=== PATIENT | female | born 1960 | race Caucasian/White ===

== ENCOUNTER 2018-06-07 07:53 | Inpatient (IN) ==
--- NOTE | 2018-05-29 14:26 | History & Physical Report ---
Date of Service May 29, 2018 Date of Surgery: 06-07-18 Assessment & Plan (1) Degenerative arthritis of knee, bilateral: Risks and benefits of procedure discussed in detail today, patient has failed conservative measures and would like to proceed with bilateral total knee replacements on 06-07-18 @ [facility] as scheduled. will obtain medical clearance prior to surgery as well as obtain PATs at [facility]. Will place on Xarelto x 1 month post op, f/u 2 weeks post op for routine post-operative care and xray, sooner if having any problems. will make arrangements for HHPT at the time of discharge. has tried and failed cortisone injections, viscosupplementation, as well as Coolief on her left knee. History of Present Illness Chief Complaint: bilateral knee pain Primary Care Provider: Ray Bernal Ms Nguyen is a 58 year old female who is here for a follow up of bilateral knee pain, presents for pre-op evaluation prior to bilateral total knee replacements. She complains of pain equally on both sides. She states that the symptoms have been chronic non-traumatic. Currently the patient states that the symptoms are mild-moderate. The pain is described as aching and throbbing. She rates her current pain as 4/10 in both knees, and worst as an 8/10 bilateral knees. The symptoms are aggravated by daily activities and walking, standing and using stairs and the pain sometimes wakes her at night. The patient has undergone previous visco injections as well as cortisone injections with little relief, she has also undergone Coolief on her left knee as part of a clinical trials with little relief. At this point in time, patient has tried and failed conservative measures and would like to proceed with bilateral total knee replacements. Allergies Allergy/AdvReac Type Severity Reaction Status Date / Time No Known Allergies Allergy Verified 05/23/18 08:40 Home Medications Home Medications Medication Instructions Recorded Confirmed Type amlodipine [Norvasc] 10 mg PO QAM 05/23/18 05/23/18 History calcium carbonate [Tums] 200 mg PO BID PRN 05/23/18 05/23/18 History meloxicam 15 mg PO QAM 05/23/18 05/23/18 History tramadol-acetaminophen 2 tab PO Q4H PRN 05/23/18 05/23/18 History Past Med/Surg History Medical History GERD (gastroesophageal reflux disease) TUMS PRN Hypertension Kidney stones Obesity Osteoarthritis Surgical History History of appendectomy History of bilateral tubal ligation History of nephrectomy R/T 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 [facility], FOLLOWS [id number]. History of tonsillectomy Social History Current Living Situation: Spouse Other Information That Helps Us Care for You: No Feels Safe at Home: Yes Safety Concerns: Feels Safe At This Time Smoking Status: Former smoker Tobacco Type: cigarettes Do You Dip or Chew Tobacco: No Smoking End Date: 2016 Hx Alcohol Use: No Hx Substance Use: No Beliefs That Will Affect Care: None Preferred Language: Beninese Communication Ability: Effective Sports Medicine Coordinator Required: No Review of Systems All systems reviewed & are unremarkable except as noted in HPI & below Constitutional: no fever, no chills and no sweats Respiratory: no cough and no dyspnea Cardiovascular: no chest pain, no dyspnea and no orthopnea Gastrointestinal: no abdominal pain, no nausea and no vomiting Musculoskeletal: as per Subjective / HPI Integumentary: no rash and no lesions Endocrine: no fatigue Physical Exam 2 Vital Signs (Past 24 Hours): Ht: 5ft 2in Wt: 81.9kg BP: 128/84 Pulse: 74 Constitutional: WD/WN, vitals as above no acute distress Respiratory: normal respiratory effort, lungs clear to auscultation no respiratory distress and does not use accessory muscles Cardiovascular: RRR, no murmur, no edema Gastrointestinal (Abdomen): normal bowel sounds, soft, nontender, no hepatosplenomegaly Musculoskeletal: Bilateral knee Physical exam Overall patient has varus alignment bilaterally, there is no atrophy, erythema or warmth, no ecchymosis noted, she does have +1 suprapatellar effusion in both of her knees, she has diffuse tenderness to both knees, but greatest over bilateral medial compartments. negative patellar apprehension, she does have crepitation noted to both knees with active and passive range of motion, bilateral knees stable to valgus and varus stress, tonya negative, posterior drawer negative. Range of motion right knee 0/5/115, left knee 0/5/115. her lower extremities are neurovascularly intact, calf soft and non tender, DP pulse +2 bilaterally. Results & Data Diagnostic Findings Bilateral Knee 4 view X-rays dated 05/19/18: AP, flexion lateral and sunrise views confirm bilateral knee advanced degenerative changes to bilateral knees, greatest medial compartments and patellofemoral joints with complete loss of joint space medial compartments, showing joint space narrowing, osteophyte formation and subchondral sclerosis. no acute bony pathology noted, overall varus alignment, no loose bodies.
--- NOTE | 2018-05-29 14:41 | Anesthesiology Consultation ---
Date of Service May 29, 2018 Assessment & Plan (1) Encounter for pre-operative examination: Plan: PCP clearance (Gabe) 05/29: "The patient has no medical contraindications to proceed with bilateral total knee arthroplasty. She is at low medical risk." *Possible difficult intubation based on exam* Chart Review Chart Review: Acceptable Risk for Surgery and Patient seen in Pre Admission Testing Teaching & Discussion Instructed NPO after midnight before surgery, except medications with 15 cc of water. Medication instructions provided according to the PAT guidelines. History Surgery Operation Date: 06/07/18 11:40 Proposed Procedures p Bilateral Total Knee Arthroplasty - Danilo De Leon DO Height/Weight Height: 5 ft 2 in Weight: 81.9 kg Allergies Allergy/AdvReac Type Severity Reaction Status Date / Time No Known Allergies Allergy Verified 05/23/18 08:40 Medications Home Medications Medication Instructions Recorded Confirmed Last Taken amlodipine [Norvasc] 10 mg PO QAM 05/23/18 05/23/18 Unknown calcium carbonate [Tums] 200 mg PO BID PRN 05/23/18 05/23/18 Unknown meloxicam 15 mg PO QAM 05/23/18 05/23/18 Unknown tramadol-acetaminophen 2 tab PO Q4H PRN 05/23/18 05/23/18 Unknown Past Medical History Medical History GERD (gastroesophageal reflux disease) TUMS PRN Hypertension Kidney stones Obesity Osteoarthritis Past Family History Family History Unknown Hypertension Past Surgical History Surgical History History of appendectomy History of bilateral tubal ligation History of nephrectomy R/T 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 [facility], FOLLOWS [id number]. History of tonsillectomy Past Anesthesia History No Hx of Anesthesia Complications and No Family Hx of Anesthesia Complications History of PONV No Motion Sickness Screening History of Motion Sickness: No Social History Smoking Status: Former smoker tobacco type: cigarettes Do You Dip or Chew Tobacco: No Smoking End Date: 2016 Hx Alcohol Use: No Hx Substance Use: No substance use type: does not use Exercise / Class Metabolic Activity II 4-5 Yardwork/Stairs/Walk up hill (denies CP or SOB with stairs) Review of Systems Pt denies any recent chest pain, shortness of breath, palpitations, cough, fever or URI. Physical Exam Vital Signs BP: 139/84 (pt states this is elevated for her) P: 77bpm SPO2: 99% RA T: 97.8 F R: 16 ENMT Mouth: + small oral opening; no dental restorations, no chipped teeth and no loose teeth Thyromental Distance: < 3.5 Finger Breadths (3) Mallampati Class: IV Neck normal visual inspection; neck extension not limited Respiratory normal respiratory effort Auscultation: lungs clear to auscultation bilaterally Cardiovascular Rate/Rhythm: regular rate and regular rhythm Heart Sounds: no murmur Vessels: no carotid bruit Extremities: no edema Testing Electrocardiogram Date: 05/29/18 Findings: + NSR @ (70) Chest X-Ray Date: 05/29/18 Findings: + NAD Laboratory Results 05/29/18 15:00 05/29/18 15:00 Blood Type A Positive 05/29/18 15:00 Antibody Screen NEGATIVE 05/29/18 15:00 PT 10.4 Seconds (9.0-12.0) 05/29/18 15:00 INR 1.0 (0.9-1.1) 05/29/18 15:00 APTT 25.4 Seconds (21.0-31.0) 05/29/18 15:00 Hemoglobin A1c 6.2 % (4.5-5.6) H 05/29/18 15:00 Urine Color Yellow 05/29/18 Unknown Urine Appearance Clear (Clear) 05/29/18 Unknown Urine pH 5.5 (4.5-7.5) 05/29/18 Unknown Ur Specific [place] 1.023 (1.000-1.030) 05/29/18 Unknown Urine Protein Negative (Negative) 05/29/18 Unknown Urine Glucose (UA) Negative (Negative) 05/29/18 Unknown Urine Ketones Negative (Negative) 05/29/18 Unknown Urine Nitrite Negative (Negative) 05/29/18 Unknown Ur Leukocyte Esterase 2+ (Negative) H 05/29/18 Unknown Urine WBC (Auto) 10-30 /hpf (0-5) H 05/29/18 Unknown Urine RBC (Auto) 0-4 /hpf (0-4) 05/29/18 Unknown U Hyaline Cast (Auto) 1-5 /lpf (0-5) 05/29/18 Unknown U Epithel Cells (Auto) >30 /lpf (0-5) H 05/29/18 Unknown Urine Bacteria (Auto) Negative (Negative) 05/29/18 Unknown
--- NOTE | 2018-05-29 14:50 | PAT Medication Instructions ---
Medication Instructions Date of Service May 29, 2018 Home Medications amlodipine [Norvasc] 10 mg PO QAM calcium carbonate [Tums] 200 mg PO BID PRN meloxicam 15 mg PO QAM tramadol-acetaminophen 2 tab PO Q4H PRN ASK your surgeon for instructions meloxicam 15 mg PO QAM DO NOT take the morning of surgery calcium carbonate [Tums] 200 mg PO BID PRN Take morning of surgery With a small sip of water, OTHERWISE NOTHING TO EAT OR DRINK AFTER MIDNIGHT: amlodipine [Norvasc] 10 mg PO QAM tramadol-acetaminophen 2 tab PO Q4H PRN (if needed, may be taken up to four hours before surgery) Take evening before surgery calcium carbonate [Tums] 200 mg PO BID PRN (if needed) tramadol-acetaminophen 2 tab PO Q4H PRN (if needed) Other Notes If you have any questions please call us at [phone] or [phone] or [phone] or [phone]
--- NOTE | 2018-05-29 15:29 | XRay Report ---
XR chest Pre-admission PA/Lat CLINICAL HISTORY: Preoperative chest COMPARISON STUDY: No previous studies for comparison. FINDINGS: The cardiac and mediastinal contours are normal. There is no evidence of focal pulmonary co nsolidation. There is no evidence of failure. No pleural effusions are visualized.[ IMPRESSION: No active disease in the chest. Electronically signed by: Stanislav Gonzalez M.D. 05/29/2018 3:28 PM
[2018-05-29 15:32] LABS: Basophils # (auto) 0.04 K/uL (0-0.2); Basophils % (auto) 0.5 %; Eosinophils # (auto) 0.29 K/uL (0-0.5); Eosinophils % (auto) 3.6 %; Hematocrit (blood only) 40.2 % (37-47); Hemoglobin 13.2 g/dL (12.0-16.0); Immature Granulocytes # (auto) 0.02 K/uL (0.00-0.02); Immature Granulocytes % (auto) 0.2 %; Lymphocytes # (auto) 2.23 K/uL (1.2-3.4); Lymphocytes % (auto) 27.5 %; Mean Corpuscular Hgb Conc 32.8 g/dL (32-36); Mean Platelet Volume 10.3 fL (7.4-10.4); Monocytes # (auto) 0.54 K/uL (0.11-0.59); Monocytes % (auto) 6.7 %; Neutrophils # (auto) 4.98 K/uL (1.4-6.5); Neutrophils % (auto) 61.5 %; Platelet Count 259 K/uL (130-400); RDW Coefficient of Variation 13.9 % (11.5-14.5); RDW Standard Deviation 47.1 fL (36.4-46.3); Red Blood Count 4.37 M/uL (4.2-5.4)
[2018-05-29 15:39] LABS: Appearance Urine Clear (Clear); Bacteria Urine Automated Negative (Negative); Bilirubin Urine Negative (Negative); Color Urine Yellow; Epithelial Cell Urine Auto >30 /lpf (0-5); Glucose Urine UA Negative (Negative); Ketones Urine Negative (Negative); Leukocyte Esterase Urine 2+ (Negative); Nitrite Urine Negative (Negative); Protein Urine Negative (Negative); Specific Gravity Urine 1.023 (1.000-1.030); Urobilinogen Urine Negative (Negative); pH Urine 5.5 (4.5-7.5)
[2018-05-29 15:45] LABS: Partial Thromboplastin Time 25.4 Seconds (21.0-31.0); Prothrombin Time 10.4 Seconds (9.0-12.0)
[2018-05-29 16:07] LABS: Albumin Level 3.9 gm/dl (3.4-5.0); BUN Creatinine Ratio 18.7 (10-20); Calcium 9.7 mg/dl (8.5-10.1); Creatinine Clr Calc Pharmacy 50.3 ml/min; Est GFR (African American) 58.1; Est GFR (Non-African American) 50.1; Potassium 3.6 mmol/L (3.5-5.1)
[2018-05-30 06:20] LABS: Estimated Average Glucose 131 mg/dl
[~2018-06-07 07:53] MED LIST: ACETAMINOPHEN 500 MG TAB PO SCH; BUPIVACAINE 0.5 % 5 MG/1 ML PF 10ML VIAL ONE; CEFAZOLIN 2000MG 2,000 MG/15 ML SYR IV SCH; CeleBREX 200 MG CAP PO SCH; FAMOTIDINE 20 MG TAB PO SCH; GABAPENTIN 300 MG x 2 PO SCH; LR 15ML/HR IV SCH; LR 500ML BOLUS IV SCH; METOCLOPRAMIDE HCL 10 MG TABLET PO SCH; MIDAZOLAM HCL 1 MG/ML 2ML VIAL ONE; ROPIVACAINE 0.5% 5 MG/ML 30 ML VIAL ONE; ROPIVACAINE 0.5% HCL/PF 150 MG, BUPIVACAINE 0.5% MPF 30 ML, EPINEPHrine 30MG/30ML (OR U... INFIL SCH; TRANEXAMIC ACID 1,000 MG **IV Intra-op IV SCH; TRANEXAMIC ACID 1,000 MG **IV Pre-op IV SCH; dexAMETHasone 4 MG TAB PO SCH; fentaNYL citrate 100 MCG/2 ML VIAL ONE
[2018-06-07] MEDS: LR 500ML BOLUS, THEN 15ML/HR IV SCH ×4 (08:35→21:53)
[2018-06-07] MEDS ORDERED: ORTHO JOINT ANESTHETIC ONE (09:15)
[2018-06-07] MEDS ORDERED: POVIDONE-IODINE OP SOLN 30 ML BTL ONE (09:15)
[2018-06-07] MEDS ORDERED: BACITRACIN INJ 50,000 UNIT VIAL ONE (09:15)
--- NOTE | 2018-06-07 10:25 | History & Physical Bridge Note ---
Date of Service June 07, 2018 History & Physical Bridge Note I have examined the patient, reviewed the History & Physical and in the interval since the performance of the History & Physical I have noted the following changes of clinical significance: no changes noted
[2018-06-07] MEDS ORDERED: ePHEDrine sulfate 50 MG/ML AMP IV PRN (10:43)
[2018-06-07] MEDS ORDERED: ONDANSETRON INJ 2 MG/ML 2 ML VIAL IV PRN (10:43)
[2018-06-07] MEDS ORDERED: ATROPINE SULFATE 0.1 MG/ML 10ML SYR IV PRN (10:43)
[2018-06-07] MEDS ORDERED: fentaNYL citrate 100 MCG/2 ML VIAL IV PRN (10:43)
[2018-06-07] MEDS ORDERED: MIDAZOLAM HCL 1 MG/ML 2ML VIAL ONE ×2 (10:51→11:53)
[2018-06-07] MEDS ORDERED: PROPOFOL IV EMULSION 10 MG/ML 20 ML VIAL IV ONE (10:52)
--- NOTE | 2018-06-07 12:22 | Operative Report ---
Post Operative Report Pre & Post Diagnosis Severe end-stage tricompartmental degenerative joint disease bilateral knees Operation Date: 06/07/18 10:20 <No data on this case meets the specified criteria> Procedure Bilateral total knee arthroplasty utilizing [employer] journey to non-bloc total knee arthroplasty right size 3 femur 3 tibia 9 polys 29 oval patella left size 3 femur 3 tibia 10 polyethylene 29 oval patella Operation Date: 06/07/18 10:20 <No data on this case meets the specified criteria> Surgeon Danilo De Leon DO [facility] FIGUEREDO Estimated Blood Loss 5 Findings Consistent with Post-Op Diagnosis Patient presents with severe end-stage tricompartmental degenerative joint disease of bilateral knees no response to conservative manner is varus alignment subchondral sclerosis marginal osteophytes [id number] eburnation with subchondral cystic changes Specimens Bone and cartilage Drains Medium bore Hemovac Complications none Disposition Accompanied Patient To Recovery: No Disposition: Recovery Room Indications Patient presents with severe end-stage tricompartmental degenerative rest activity modification corticosteroid injections Visco supplementation the above finding times surgery and preoperatively were noted. Description of Procedure After proper prepping and draping of the bilateral lower extremities, an anterior midline incision was made over the region of the extensor extensor mechanism of the left knee. After meticulous hemostasis was obtained and maintained in subcutaneous tissues a medial parapatellar incision was made The patella was subluxed lateralward the medial lateral gutter were cleaned from any hypertrophic synovitis and scar tissue of the distal femoral block was placed and the distal femoral osteotomy cut was made subsequently the chamfers anterior and posterior osteotomy cuts were made utilizing the 4-in-1 block the tibia was subsequently subluxed anteriorward medial and ateral meniscal remnants were excised in their entirety remnants of the anterior and posterior cruciate ligaments were excised in their entirety excellent exposure of the proximal tibia was obtained the tibial osteotomy guide was placed on the proximal tibial osteotomy cut was made once again the knee was irrigated with copious amounts of sterile saline solution the patella was subsequently everted lateralward thickened scar tissue around the patella was removed the patella was subsequently cut utilizing a freehand technique and was drilled prepared for final preparation and placement of patella socially flexion-extension gaps were checked and the equal and symmetric trials were placed to the appropriate femoral and tibial trials with poly-spacer being placed for equal flexion and extension gaps and full range of motion including extension to 0 and flexion to 140� the trial components after having been taken to recovery range of motion was subsequently removed meticulous hemostasis was obtained and maintained subsequently a knee block injection of joint cocktail including ropivacaine 0.5 % 150 mg. Bupivacaine 0.5% epinephrine 1-200,030 mL's toradol 30 mg dexamethasone 4 mg ketamine 10 mg clonidine 100 micrograms normal saline solution 30 mg was infiltrated into the soft tissues of the posterior knee medial lateral gutters and periosteal synovium special attention was paid to protect neurovascular structures at all times subsequently trial components having been removed the knee was irrigated with sterile saline solution. debris was removed the proximal tibia was subsequently prepared and was made ready for the placement of the tibial component tibial component was also cemented and tamped into position the femoral component was subsequently placed and cemented in the position the patellar component was subsequently cemented in position because hemostasis once again obtained and maintained wound having been thoroughly irrigated with debridement and debridement lavage was performed as well as a medial parapatellar incision closed with #1 Vicryl in interrupted fashion subcutaneous was closed with #2 Vicryl skin was closed with skin clips Next, an anterior midline incision was made over the region of the extensor extensor mechanism of the right knee. After meticulous hemostasis was obtained and maintained in subcutaneous tissues a medial parapatellar incision was made The patella was subluxed lateralward the medial lateral gutter were cleaned from any hypertrophic synovitis and scar tissue of the distal femoral block was placed and the distal femoral osteotomy cut was made subsequently the chamfers anterior and posterior osteotomy cuts were made utilizing the 4-in-1 block the tibia was subsequently subluxed anteriorward medial and ateral meniscal remnants were excised in their entirety remnants of the anterior and posterior cruciate ligaments were excised in their entirety excellent exposure of the proximal tibia was obtained the tibial osteotomy guide was placed on the proximal tibial osteotomy cut was made once again the knee was irrigated with copious amounts of sterile saline solution the patella was subsequently everted lateralward thickened scar tissue around the patella was removed the patella was subsequently cut utilizing a freehand technique and was drilled prepared for final preparation and placement of patella socially flexion-extension gaps were checked and the equal and symmetric trials were placed to the appropriate femoral and tibial trials with poly-spacer being placed for equal flexion and extension gaps and full range of motion including extension to 0 and flexion to 140� the trial components after having been taken to recovery range of motion was subsequently removed meticulous hemostasis was obtained and maintained subsequently a knee block injection of joint cocktail including ropivacaine 0.5 % 150 mg. Bupivacaine 0.5% epinephrine 1-200,030 mL's toradol 30 mg dexamethasone 4 mg ketamine 10 mg clonidine 100 micrograms normal saline solution 30 mg was infiltrated into the soft tissues of the posterior knee medial lateral gutters and periosteal synovium special attention was paid to protect neurovascular structures at all times subsequently trial components having been removed the knee was irrigated with sterile saline solution. debris was removed the proximal tibia was subsequently prepared and was made ready for the placement of the tibial component tibial component was also cemented and tamped into position the femoral component was subsequently placed and cemented in the position the patellar component was subsequently cemented in position because hemostasis once again obtained and maintained wound having been thoroughly irrigated with debridement and debridement lavage was performed as well as a medial parapatellar incision closed with #1 Vicryl in interrupted fashion subcutaneous was closed with #2 Vicryl skin was closed with skin clips.. PA-C was necessary for prepping and drapping as well as wound closure of deep fascia Sub cutaneous tissue and skin and was necessary for the case. A sterile compressive dressings were placed, patient was taken to recovery in stable condition of report dictated by Moises I attest to the content of the Intraoperative Record and any orders documented therein. Any exceptions are noted below. I attest to the content of the Intraoperative Record and any orders documented therein. Any exceptions are noted below.
--- NOTE | 2018-06-07 14:14 | XRay Report ---
XR knee LT 2V routine CLINICAL HISTORY: 58 years-old Female presenting with Surgical Post Op. TECHNIQUE: Frontal and crosstable lateral views of the left knee were obtained. COMPARISON: 05/19/2018. FINDINGS: There has been interval total left knee arthroplasty with patellar resurfacing. Expected intra-articu lar and soft tissue emphysema. A surgical drain is in place. Underlying osteopenia may be present. No malalignment. No periprosthetic fracture. IMPRESSION: Expected postsurgical appearance status post total left knee arthroplasty with patellar resurfacing. Electronically signed by: Chago Parker M.D. 06/07/2018 2:13 PM
--- NOTE | 2018-06-07 14:17 | XRay Report ---
TWO VIEWS RIGHT KNEE CLINICAL HISTORY: Postoperative examination. FINDINGS: AP and crosstable lateral portable views of the right knee are obtained. A right knee arthr oplasty is in near anatomic alignment. There has been undersurface remodeling of the patella. There i s cortical disruption identified involving the dorsal aspect of the distal femoral metaphysis. There are expected postoperative changes around the knee including a surgical drain, soft tissue edema, and subcutaneous gas. IMPRESSION: 1. Expected postoperative changes status post right knee arthroplasty. 2. There is cortical disruption identified along the dorsal cortex of the distal femoral metaphysis. This may represent postoperative change. A nondistracted fracture is not excluded. Electronically signed by: Rich Garcia M.D. 06/07/2018 2:16 PM
--- NOTE | 2018-06-07 14:33 | Anesthesiology Progress Note ---
Date of Service June 07, 2018 Anesthesia Post Procedure Vital Signs Vital Signs: Temp Pulse Pulse Resp BP Pulse Ox 06/07/18 14:05 80 16 122/64 100 06/07/18 13:55 37.3 C 74 14 121/64 100 06/07/18 13:45 72 15 119/64 100 06/07/18 13:35 72 19 104/72 100 06/07/18 13:25 77 13 125/68 100 06/07/18 13:15 88 17 142/77 H 100 06/07/18 13:07 36.7 C 93 H 16 130/78 99 06/07/18 09:16 147/83 H 06/07/18 08:37 36.9 C 83 20 170/101 H 100 Pain Intensity Bilateral Knee: Pain Intensity: 0 Notes Mental Status: alert / awake / arousable Patient Amnestic to Procedure: Yes Nausea / Vomiting: adequately controlled Pain: adequately controlled Airway Patency, RR, SpO2: stable & adequate BP & HR: stable & adequate Hydration State: stable & adequate Neuraxial Anesthesia: was administered and sensory block is resolving Anesthetic Complications: no major complications apparent and Pt Satisfied with anesthetic care
[2018-06-07] MEDS ORDERED: MAGNESIUM HYDROXIDE SUSP 30 ML UDC PO PRN (14:37)
[2018-06-07] MEDS ORDERED: NALOXONE HCL 0.4 MG/1 ML VIAL/CARP IV PRN (14:37)
[2018-06-07] MEDS ORDERED: CALCIUM CARBONATE 500 MG CHEWABLE TAB PO PRN (14:37)
[2018-06-07] MEDS ORDERED: METOCLOPRAMIDE HCL INJ 5 MG/ML 2 ML VIAL IV PRN (14:37)
[2018-06-07] MEDS ORDERED: ALUMINUM/MAGNESIUM SUSP 30 ML UDC PO PRN (14:37)
[2018-06-07] MEDS ORDERED: BISACODYL 10 MG SUPP PR PRN (14:37)
[2018-06-07] MEDS ORDERED: HYDROmorphone INJ 1 MG/ML SYRINGE IV PRN (14:37)
[2018-06-07] MEDS: OXYCODONE HCL IR 5 MG TAB (IMMEDIATE RELEASE) PO PRN (17:36)
[2018-06-07] MEDS: FERROUS GLUCONATE 324 MG TAB PO SCH (17:37)
[2018-06-07] MEDS: ACETAMINOPHEN 500 MG TAB PO SCH (17:43)
[2018-06-07] MEDS: KETOROLAC TROMETHAMINE 15 MG/ML VIAL IV SCH ×2 (17:44→23:31)
[2018-06-07] MEDS: CEFAZOLIN 2000MG 2,000 MG/15 ML SYR IV SCH (19:26)
[2018-06-07] MEDS: SODIUM CHLORIDE 0.9% 1000ML 1,000 ML IV SCH (20:53)
[2018-06-07] MEDS: ONDANSETRON INJ 2 MG/ML 2 ML VIAL IV PRN (20:56)
[2018-06-07] MEDS: DOCUSATE SODIUM 100 MG CAP PO SCH (21:59)
[2018-06-07] MEDS: SENNA 8.6 MG TAB PO SCH (21:59)
[2018-06-08] MEDS: CEFAZOLIN 2000MG 2,000 MG/15 ML SYR IV SCH (03:08)
[2018-06-08] MEDS: ONDANSETRON INJ 2 MG/ML 2 ML VIAL IV PRN (03:09)
[2018-06-08] MEDS: KETOROLAC TROMETHAMINE 15 MG/ML VIAL IV SCH ×2 (05:30→11:58)
[2018-06-08] MEDS: SODIUM CHLORIDE 0.9% 1000ML 1,000 ML IV SCH (05:30)
[2018-06-08] MEDS: ACETAMINOPHEN 500 MG TAB PO SCH ×3 (05:30→20:46)
--- NOTE | 2018-06-08 07:59 | Orthopedic Progress Note ---
Date of Service June 08, 2018 Assessment & Plan (1) Status post total bilateral knee replacement: Begin PT and OT protocols today. Weightbearing as tolerated. DVT prophylaxis with SCDs, GUZMAN hose, and enoxaparin. Pain management with oxycodone, hydromorphone, rivaroxaban DC planning-patient is planning on home health services upon discharge. Labs pending. Subjective Postop day 1 status post bilateral total knee arthroplasty. Patient is sitting up in bed this morning and is awake and alert. She has no complaints at this time. She states that she had numbness in her left foot which has now resolved. She also had some nausea yesterday evening which also has resolved with the use of antiemetics. Shortness of breath, chest pain, lightheadedness. Physical Exam 2 Vital Signs (Past 24 Hours): Last Vital Signs Temp 36.6 C 06/08/18 07:18 Pulse 77 06/08/18 07:18 Resp 18 06/08/18 07:18 BP 142/83 H 06/08/18 07:18 Pulse Ox 97 06/08/18 07:18 Physical Exam: Bilateral dressings are clean, dry, and intact. Calves are soft and nontender. Neurovascular intact. Toes are mobile. She is having minimal drainage out of her Hemovacs.
--- NOTE | 2018-06-08 08:15 | Anesthesiology Progress Note ---
Date of Service June 08, 2018 Anesthesia Post Procedure Vital Signs Vital Signs: Temp Pulse Pulse Pulse Resp BP Pulse Ox 06/08/18 07:18 36.6 C 77 18 142/83 H 97 06/08/18 03:00 36.6 C 76 16 124/75 96 06/07/18 23:05 36.7 C 80 18 128/77 97 06/07/18 19:24 36.7 C 87 16 119/69 97 06/07/18 17:44 36.6 C 93 H 18 115/74 100 06/07/18 16:24 36.5 C 83 16 153/85 H 100 06/07/18 15:19 36.5 C 80 16 156/78 H 100 06/07/18 15:02 36.5 C 81 16 148/80 H 100 06/07/18 14:05 80 16 122/64 100 06/07/18 13:55 37.3 C 74 14 121/64 100 06/07/18 13:45 72 15 119/64 100 06/07/18 13:35 72 19 104/72 100 06/07/18 13:25 77 13 125/68 100 06/07/18 13:15 88 17 142/77 H 100 06/07/18 13:07 36.7 C 93 H 16 130/78 99 06/07/18 09:16 147/83 H 06/07/18 08:37 36.9 C 83 20 170/101 H 100 Pain Intensity Bilateral Knee: Pain Intensity: 4 Notes Mental Status: alert / awake / arousable and participated in evaluation Patient Amnestic to Procedure: Yes Nausea / Vomiting: adequately controlled Pain: adequately controlled Airway Patency, RR, SpO2: stable & adequate BP & HR: stable & adequate Hydration State: stable & adequate Neuraxial Anesthesia: was administered and sensory block resolved Anesthetic Complications: no major complications apparent and Pt Satisfied with anesthetic care
[2018-06-08] MEDS: OXYCODONE HCL IR 5 MG TAB (IMMEDIATE RELEASE) PO PRN ×4 (08:49→23:22)
[2018-06-08] MEDS: FERROUS GLUCONATE 324 MG TAB PO SCH ×2 (08:50→18:07)
[2018-06-08] MEDS: DOCUSATE SODIUM 100 MG CAP PO SCH ×2 (08:51→20:45)
[2018-06-08] MEDS: MULTIVITAMIN TAB PO SCH (08:51)
[2018-06-08] MEDS: AMLODIPINE BESYLATE 5 MG TAB PO SCH (08:51)
[2018-06-08] MEDS: RIVAROXABAN 10 MG TABLET PO SCH (08:52)
[2018-06-08 09:27] LABS: BUN Creatinine Ratio 16.3 (10-20); Calcium 8.6 mg/dl (8.5-10.1); Creatinine Clr Calc Pharmacy 55.1 ml/min; Est GFR (African American) 65.3; Est GFR (Non-African American) 56.4; Potassium 3.7 mmol/L (3.5-5.1)
[2018-06-08 09:39] LABS: Hematocrit (blood only) 34.8 % (37-47); Hemoglobin 11.3 g/dL (12.0-16.0); Mean Corpuscular Hgb Conc 32.5 g/dL (32-36); Mean Corpuscular Volume 91.6 fL (80-100); Mean Platelet Volume 10.5 fL (7.4-10.4); Platelet Count 251 K/uL (130-400); RDW Coefficient of Variation 13.7 % (11.5-14.5); RDW Standard Deviation 45.3 fL (36.4-46.3); White Blood Count 18.58 K/uL (4.8-10.8)
[2018-06-08] MEDS: CeleBREX 200 MG CAP PO SCH (20:44)
[2018-06-08] MEDS: SENNA 8.6 MG TAB PO SCH (20:45)
[2018-06-09] MEDS: OXYCODONE HCL IR 5 MG TAB (IMMEDIATE RELEASE) PO PRN ×2 (05:32→09:37)
[2018-06-09] MEDS: ONDANSETRON INJ 2 MG/ML 2 ML VIAL IV PRN (05:32)
[2018-06-09] MEDS: ACETAMINOPHEN 500 MG TAB PO SCH (05:34)
--- NOTE | 2018-06-09 07:38 | Orthopedic Progress Note ---
Date of Service June 09, 2018 Assessment & Plan (1) Status post total bilateral knee replacement: POD #2 s/p bilateral TKAs pt/ot dvt proph with SCDs, GUZMAN pina, and X[place] Pain management with oxycodone, hydromorphone Xray was reviewed with dr jose, it appears to be a post operative change rather than a posterior cortex fracture. will repeat xrays in 2 weeks, at this time may WBAT with her walker DC planning-patient is planning on home health services upon discharge. recheck after PT today for possible d/c home with HHPT Subjective Postop day 2 status post bilateral total knee arthroplasty. Constitutional: no fever, no chills and no sweats Respiratory: no cough and no dyspnea Cardiovascular: no chest pain, no dyspnea and no orthopnea Gastrointestinal: no nausea and no vomiting Musculoskeletal: as per Subjective / HPI Physical Exam 2 Vital Signs (Past 24 Hours): Last Vital Signs Temp 36.9 C 06/08/18 23:36 Pulse 97 H 06/08/18 23:36 Resp 16 06/08/18 23:36 BP 160/96 H 06/08/18 23:36 Pulse Ox 99 06/08/18 23:36 Constitutional: WD/WN, vitals as above no acute distress Musculoskeletal: Bilateral lower legs: NVDI, calf SNT, negative shandra sign. DP palpable, able to wiggle toes/ankle movement without difficulty. KATIE dressings clean dry and intact. expected post-operative bruising noted. Results & Data Laboratory Results Laboratory Results WBC 18.58 K/uL (4.8-10.8) H 06/08/18 08:32 RBC 3.80 M/uL (4.2-5.4) L 06/08/18 08:32 Hgb 11.3 g/dL (12.0-16.0) L 06/08/18 08:32 Hct 34.8 % (37-47) L 06/08/18 08:32 MCV 91.6 fL (80-100) 06/08/18 08:32 MCH 29.7 pg (25-34) 06/08/18 08:32 MCHC 32.5 g/dL (32-36) 06/08/18 08:32 RDW Std Deviation 45.3 fL (36.4-46.3) 06/08/18 08:32 RDW Coeff of Merle 13.7 % (11.5-14.5) 06/08/18 08:32 Plt Count 251 K/uL (130-400) 06/08/18 08:32 MPV 10.5 fL (7.4-10.4) H 06/08/18 08:32 Immature Gran % (Auto) 0.2 % 05/29/18 15:00 Neut % (Auto) 61.5 % 05/29/18 15:00 Lymph % (Auto) 27.5 % 05/29/18 15:00 [place] % (Auto) 6.7 % 05/29/18 15:00 Eos % (Auto) 3.6 % 05/29/18 15:00 Baso % (Auto) 0.5 % 05/29/18 15:00 Immature Gran # (Auto) 0.02 K/uL (0.00-0.02) 05/29/18 15:00 Neut # (Auto) 4.98 K/uL (1.4-6.5) 05/29/18 15:00 Lymph # (Auto) 2.23 K/uL (1.2-3.4) 05/29/18 15:00 [place] # (Auto) 0.54 K/uL (0.11-0.59) 05/29/18 15:00 Eos # (Auto) 0.29 K/uL (0-0.5) 05/29/18 15:00 Baso # (Auto) 0.04 K/uL (0-0.2) 05/29/18 15:00 PT 10.4 Seconds (9.0-12.0) 05/29/18 15:00 INR 1.0 (0.9-1.1) 05/29/18 15:00 APTT 25.4 Seconds (21.0-31.0) 05/29/18 15:00 PTT Ratio 1.0 05/29/18 15:00 Sodium 142 mmol/L (136-145) 06/08/18 08:32 Potassium 3.7 mmol/L (3.5-5.1) 06/08/18 08:32 Chloride 108 mmol/L (98-107) H 06/08/18 08:32 Carbon Dioxide 26 mmol/L (21-32) 06/08/18 08:32 Anion Gap 8.0 (3-11) 06/08/18 08:32 BUN 17 mg/dl (7-18) 06/08/18 08:32 Creatinine 1.07 mg/dl (0.6-1.2) 06/08/18 08:32 Est Cr Clr Drug Dosing 55.1 ml/min 06/08/18 08:32 Est GFR ( Amer) 65.3 06/08/18 08:32 Est GFR (Non-Af Amer) 56.4 06/08/18 08:32 BUN/Creatinine Ratio 16.3 (10-20) 06/08/18 08:32 Glucose 141 mg/dl (70-99) H 06/08/18 08:32 Estimat Average Glucose 131 mg/dl 05/29/18 15:00 Hemoglobin A1c 6.2 % (4.5-5.6) H 05/29/18 15:00 Calcium 8.6 mg/dl (8.5-10.1) 06/08/18 08:32 Albumin 3.9 gm/dl (3.4-5.0) 05/29/18 15:00 Urine Color Yellow 05/29/18 Unknown Urine Appearance Clear (Clear) 05/29/18 Unknown Urine pH 5.5 (4.5-7.5) 05/29/18 Unknown Ur Specific [place] 1.023 (1.000-1.030) 05/29/18 Unknown Urine Protein Negative (Negative) 05/29/18 Unknown Urine Glucose (UA) Negative (Negative) 05/29/18 Unknown Urine Ketones Negative (Negative) 05/29/18 Unknown Urine Blood Negative (Negative) 05/29/18 Unknown Urine Nitrite Negative (Negative) 05/29/18 Unknown Urine Bilirubin Negative (Negative) 05/29/18 Unknown Urine Urobilinogen Negative (Negative) 05/29/18 Unknown Ur Leukocyte Esterase 2+ (Negative) H 05/29/18 Unknown Urine WBC (Auto) 10-30 /hpf (0-5) H 05/29/18 Unknown Urine RBC (Auto) 0-4 /hpf (0-4) 05/29/18 Unknown U Hyaline Cast (Auto) 1-5 /lpf (0-5) 05/29/18 Unknown U Epithel Cells (Auto) >30 /lpf (0-5) H 05/29/18 Unknown Urine Bacteria (Auto) Negative (Negative) 05/29/18 Unknown Hepatitis C Ab Screen Neg (Neg) 06/08/18 08:32 Blood Type A Positive 05/29/18 15:00 Antibody Screen NEGATIVE 05/29/18 15:00 Diagnostic Findings TWO VIEWS RIGHT KNEE CLINICAL HISTORY: Postoperative examination. FINDINGS: AP and crosstable lateral portable views of the right knee are obtained. A right knee arthroplasty is in near anatomic alignment. There has been undersurface remodeling of the patella. There is cortical disruption identified involving the dorsal aspect of the distal femoral metaphysis. There are expected postoperative changes around the knee including a surgical drain, soft tissue edema, and subcutaneous gas. IMPRESSION: 1. Expected postoperative changes status post right knee arthroplasty. 2. There is cortical disruption identified along the dorsal cortex of the distal femoral metaphysis. This may represent postoperative change. A nondistracted fracture is not excluded. This was reviewed with Dr Jose as well, it appears to be a postoperative change , the fragment is in line with the posterior cortex cut.
[2018-06-09] MEDS: FERROUS GLUCONATE 324 MG TAB PO SCH (08:24)
[2018-06-09] MEDS: CeleBREX 200 MG CAP PO SCH (08:25)
[2018-06-09] MEDS: AMLODIPINE BESYLATE 5 MG TAB PO SCH (08:25)
[2018-06-09] MEDS: DOCUSATE SODIUM 100 MG CAP PO SCH (08:25)
[2018-06-09] MEDS: RIVAROXABAN 10 MG TABLET PO SCH (08:25)
[2018-06-09] MEDS: MULTIVITAMIN TAB PO SCH (08:25)
--- NOTE | 2018-06-09 10:25 | Discharge Summary ---
Date of Service Date of Discharge: June 09, 2018 Date of Admission: 06/07/18 Admission HPI Per Admitting Provider Ms Nguyen is a 58 year old female who is here for a follow up of bilateral knee pain, presents for pre-op evaluation prior to bilateral total knee replacements. She complains of pain equally on both sides. She states that the symptoms have been chronic non-traumatic. Currently the patient states that the symptoms are mild-moderate. The pain is described as aching and throbbing. She rates her current pain as 4/10 in both knees, and worst as an 8/10 bilateral knees. The symptoms are aggravated by daily activities and walking, standing and using stairs and the pain sometimes wakes her at night. The patient has undergone previous visco injections as well as cortisone injections with little relief, she has also undergone Coolief on her left knee as part of a clinical trials with little relief. At this point in time, patient has tried and failed conservative measures and would like to proceed with bilateral total knee replacements. Principal Diagnosis bilateral knee osteoarthritis Discharge Exam Constitutional WD/WN, vitals as above no acute distress Musculoskeletal bilateral Knees: NVDI, calf SNT, negative shandra sign. DP palpable, able to wiggle toes/ankle movement without difficulty. bilateral KATIE dressings clean dry and intact. expected post-operative bruising noted. Discharge Data Allergies Allergy/AdvReac Type Severity Reaction Status Date / Time No Known Allergies Allergy Verified 06/07/18 08:24 Consultations 06/07/18 14:37 Consult Case Management - Discharge Planning Routine Procedures Performed Operation Date: 06/07/18 10:20 Actual Procedures p Bilateral Total Knee Arthroplasty - Danilo Jose, Ordered Studies 06/07/18 05:00 US - OR guided needle placemen Routine Hospital Course (1) Status post total bilateral knee replacement: POD #2 s/p bilateral TKAs pt/ot dvt proph with SCDs, GUZMAN pina, and Xarelto Pain management with oxycodone, hydromorphone Xray was reviewed with dr jose, it appears to be a post operative change rather than a posterior cortex fracture. will repeat xrays in 2 weeks, at this time may WBAT with her walker DC planning-patient is planning on home health services upon discharge. recheck after PT today for possible d/c home with HHPT Patient was a same day admission after undergoing successful bilateral TKAs. She tolerated the procedure well. Post-operatively, her activity was progressed and well tolerated. Please refer to daily progress notes and PT notes for complete details. After exam on 06/09/18, patient felt to be stable for discharge home with HHPT. her post op xray of her right knee showed question of post surgical changes vs fracture, these were reviewed and felt to be post surgical and not a fracture. Patient will f/u in the office in 2 weeks for further evaluation including x-rays and incision check, sooner if having any issues or concerns. Below are pertinent labs/studies during their hospital stay: Laboratory Results WBC 18.58 K/uL (4.8-10.8) H 06/08/18 08:32 RBC 3.80 M/uL (4.2-5.4) L 06/08/18 08:32 Hgb 11.3 g/dL (12.0-16.0) L 06/08/18 08:32 Hct 34.8 % (37-47) L 06/08/18 08:32 MCV 91.6 fL (80-100) 06/08/18 08:32 MCH 29.7 pg (25-34) 06/08/18 08:32 MCHC 32.5 g/dL (32-36) 06/08/18 08:32 RDW Std Deviation 45.3 fL (36.4-46.3) 06/08/18 08:32 RDW Coeff of Merle 13.7 % (11.5-14.5) 06/08/18 08:32 Plt Count 251 K/uL (130-400) 06/08/18 08:32 MPV 10.5 fL (7.4-10.4) H 06/08/18 08:32 Immature Gran % (Auto) 0.2 % 05/29/18 15:00 Neut % (Auto) 61.5 % 05/29/18 15:00 Lymph % (Auto) 27.5 % 05/29/18 15:00 [place] % (Auto) 6.7 % 05/29/18 15:00 Eos % (Auto) 3.6 % 05/29/18 15:00 Baso % (Auto) 0.5 % 05/29/18 15:00 Immature Gran # (Auto) 0.02 K/uL (0.00-0.02) 05/29/18 15:00 Neut # (Auto) 4.98 K/uL (1.4-6.5) 05/29/18 15:00 Lymph # (Auto) 2.23 K/uL (1.2-3.4) 05/29/18 15:00 [place] # (Auto) 0.54 K/uL (0.11-0.59) 05/29/18 15:00 Eos # (Auto) 0.29 K/uL (0-0.5) 05/29/18 15:00 Baso # (Auto) 0.04 K/uL (0-0.2) 05/29/18 15:00 PT 10.4 Seconds (9.0-12.0) 05/29/18 15:00 INR 1.0 (0.9-1.1) 05/29/18 15:00 APTT 25.4 Seconds (21.0-31.0) 05/29/18 15:00 PTT Ratio 1.0 05/29/18 15:00 Sodium 142 mmol/L (136-145) 06/08/18 08:32 Potassium 3.7 mmol/L (3.5-5.1) 06/08/18 08:32 Chloride 108 mmol/L (98-107) H 06/08/18 08:32 Carbon Dioxide 26 mmol/L (21-32) 06/08/18 08:32 Anion Gap 8.0 (3-11) 06/08/18 08:32 BUN 17 mg/dl (7-18) 06/08/18 08:32 Creatinine 1.07 mg/dl (0.6-1.2) 06/08/18 08:32 Est Cr Clr Drug Dosing 55.1 ml/min 06/08/18 08:32 Est GFR ( Amer) 65.3 06/08/18 08:32 Est GFR (Non-Af Amer) 56.4 06/08/18 08:32 BUN/Creatinine Ratio 16.3 (10-20) 06/08/18 08:32 Glucose 141 mg/dl (70-99) H 06/08/18 08:32 Estimat Average Glucose 131 mg/dl 05/29/18 15:00 Hemoglobin A1c 6.2 % (4.5-5.6) H 05/29/18 15:00 Calcium 8.6 mg/dl (8.5-10.1) 06/08/18 08:32 Albumin 3.9 gm/dl (3.4-5.0) 05/29/18 15:00 Urine Color Yellow 05/29/18 Unknown Urine Appearance Clear (Clear) 05/29/18 Unknown Urine pH 5.5 (4.5-7.5) 05/29/18 Unknown Ur Specific [place] 1.023 (1.000-1.030) 05/29/18 Unknown Urine Protein Negative (Negative) 05/29/18 Unknown Urine Glucose (UA) Negative (Negative) 05/29/18 Unknown Urine Ketones Negative (Negative) 05/29/18 Unknown Urine Blood Negative (Negative) 05/29/18 Unknown Urine Nitrite Negative (Negative) 05/29/18 Unknown Urine Bilirubin Negative (Negative) 05/29/18 Unknown Urine Urobilinogen Negative (Negative) 05/29/18 Unknown Ur Leukocyte Esterase 2+ (Negative) H 05/29/18 Unknown Urine WBC (Auto) 10-30 /hpf (0-5) H 05/29/18 Unknown Urine RBC (Auto) 0-4 /hpf (0-4) 05/29/18 Unknown U Hyaline Cast (Auto) 1-5 /lpf (0-5) 05/29/18 Unknown U Epithel Cells (Auto) >30 /lpf (0-5) H 05/29/18 Unknown Urine Bacteria (Auto) Negative (Negative) 05/29/18 Unknown Hepatitis C Ab Screen Neg (Neg) 06/08/18 08:32 Blood Type A Positive 05/29/18 15:00 Antibody Screen NEGATIVE 05/29/18 15:00 Total Time Total Time Spent Total Time Spent (In Minutes): 20 Total Time Includes: Examination of the Patient, Discharge Planning and Medication Reconciliation Discharge Plan Discharge Items Patient Disposition: Home - Home Health Services Reason For Visit: Bilateral Knee Osteoarthritis Discharge Diagnosis: bilateral total knee replacements Condition: Good Discharge Goals: Decrease discomfort, Improve function and Increase independence Activity: Per 'Additional Instructions' section Lifting: Wait until after follow-up appointment Weightbearing: Left weightbearing and Right weightbearing Weightbearing Comment: WBAT with walker bilateral legs Non-emergency contact: Primary Care Provider and Surgeon Call non-emergency contact if: you have any medication questions, your temperature is above 100.5, your wound has increased redness, your wound has increased drainage and your wound pain has increased Follow-up/Referrals: Ray Bernal [Primary Care Provider] - Diet: Regular Addtl Provider Instructions: ACTIVITY RECOMMENDATIONS: SELF CARE INSTRUCTIONS AFTER TOTAL KNEE REPLACEMENT A. You may need to continue a physical therapy program after discharge from the hospital. There are several options available to you. Your doctor will assist you in selecting the best one for you. 1. An out-patient facility 2 to 3 times a week for therapy or home therapy. 2. Continue working on all exercises taught to you in the hospital. Your goals should be to increase bending of your knee to 90 degrees and beyond and to fully straighten your knee. B. You may progress at your own pace from walking with a walker or crutches to a cane; then to no assistive devices. C. Make walking a part of your daily routine. Be up as much as comfortable with rest periods throughout the day. Rest with leg elevation is very important. Use the ice wrap frequently for the first 3-4 weeks. D. There are no restrictions on activities. You may ride in a car, shop, participate in data entry email processor and all social activities. E. Wear the long elastic stockings (GUZMAN hose) 20 hours a day for 2 weeks after surgery. They can be removed several times a day for laundering and for a bath. F. You may shower, no tub baths until cleared by your doctor. SPECIAL CARE INSTRUCTIONS: VERY IMPORTANT TO READ AND REVIEW A. There are a few signs you need to watch for after you are home. Call [facility] if you notice any of the followin. Increased severe knee pain. Some pain is expected especially when you exercise. 2. Increased swelling in your leg or knee; pain or swelling of the calf muscle in either lower leg. 3. Any fluid drainage from the incision. 4. Shortness of breath or chest pain. B. Please call [facility] at if you have any concerns or questions about your operation or recovery. The doctor or his nurse will return your call promptly. C. You must take antibiotics before dental work, bladder, bowel or other surgery. Your doctor will provide you with a permanent care to carry describing this precaution. IMPORTANT: * REMEMBER TO TAKE ASPIRIN, 81 MG, TWICE DAILY FOR 4 WEEKS UNLESS OTHERWISE DIRECTED. THIS IS YOUR BLOOD THINNER. * HIGH RISK PATIENTS MAY BE PRESCRIBED A STRONGER BLOOD THINNER. THIS WILL BE PROVIDED AT DISCHARGE. * CALL IF INCREASED PAIN, REDNESS, DRAINAGE OR FEVER GREATER THAT 101. * WEAR GUZMAN HOSE 20 HOURS PER DAY FOR 2 WEEKS. * KATIE Dressing- This is a large suction dressing covering your incision. This will help pull any excess drainage from the wound and allow your incision to heal properly. You may shower with this if you can keep the unit outside of the shower. If any bleeding or leakage is noted please call your doctor's office. This will remain on your incision for 7 days and then should be removed. This can be done yourself or by the home nursing staff if applicable. The entire unit is disposable once removed. Once removed, keep incision clean and dry. If redness or drainage is noted, please call your surgeon. ONCE KATIE IS REMOVED: DERMABOND [place]- This is a mesh tape dressing that is covered with glue. It should remain in place until the incision is properly healed, usually 10-14 days. This dressing is designed to naturally slough off. You may trim the excess mesh tape as it peels off. Incision may be briefly wet in a shower. Dry immediately by blotting with a clean, dry towel. Do not bath or swim until instructed by your doctor. Do not scratch, rub, or pick at the dressing. Do not apply any topical ointments or lotions until dressing is completely removed and/or instructed by your doctor. There may be a small piece of suture material at one end of your incision. Do not pull or trim this. If it is bothersome or catching on clothing, you may cover it with a band-aid. FOLLOW UP VISIT: If appointment is not already scheduled: Please call [facility] to make a follow-up appointment for 2 weeks after your surgery at . Prescriptions: New celecoxib [Celebrex] 200 mg Capsule 200 mg PO DAILY 30 Days Qty: 30 RF: 0 acetaminophen [Pain Reliever] 500 mg Tablet 1,000 mg PO Q8 14 Days Qty: 84 RF: 0 rivaroxaban [Xarelto] 10 mg Tablet 10 mg PO DAILY 28 Days Qty: 28 RF: 0 oxycodone 5 mg Tablet 5 - 10 mg PO Q4H PRN (Reason: pain) Qty: 30 RF: 0 docusate sodium 100 mg Capsule 100 mg PO BID 10 Days Qty: 20 RF: 0 cefadroxil 500 mg capsule 500 mg PO BID 10 Days Qty: 20 RF: 0 Continue amlodipine [Norvasc] 10 mg Tablet 10 mg PO QAM RF: 0 calcium carbonate [Tums] 200 mg calcium (500 mg) Tablet,Chewable 200 mg PO BID PRN (Reason: Heartburn) RF: 0 Discontinued tramadol-acetaminophen 37.5-325 mg Tablet 2 tab PO Q4H PRN (Reason: Pain) RF: 0 meloxicam 15 mg Tablet 15 mg PO QAM RF: 0 Stand-Alone Forms: [facility] Discharge Orders: Discharge Order (Routine); Ordered 06/09/18 Ordered By: Malcolm Cross Admission Data Admit Date/Time: 06/07/18 13:11 Attending Provider: Danilo Jose Admit Provider: Danilo Jose Primary Care Provider: Ray Bernal Service: Surgical Services Other Pending Studies at Discharge: No
== END 2018-06-09 13:02 | disposition home health service (06) | DRG 462 ==
LOC: ASU 07:53 → 3W 13:11
DX: Z51.81 Encounter for therapeutic drug level monitoring; Z79.1 Long term (current) use of non-steroidal anti-inflammatories (NSAID); M17.0 Bilateral primary osteoarthritis of knee; I10 Essential (primary) hypertension; Z82.49 Family history of ischemic heart disease and other diseases of the circulatory system; Z87.891 Personal history of nicotine dependence; E66.9 Obesity, unspecified; Z79.899 Other long term (current) drug therapy; Z68.32 Body mass index [BMI] 32.0-32.9, adult